=== PATIENT | male | born 1975 | race Two or more races ===

== ENCOUNTER 2017-06-11 09:30 | Emergency (ER) | payer OTHER ==
[2017-06-11 09:39] VITALS: TEMP 98.6; BMI 33.1
[2017-06-11] MEDS ORDERED: ONDANSETRON 4 MG/2 ML VIAL IVPUSH ONE (10:21)
[2017-06-11] MEDS ORDERED: SODIUM CHLORIDE 1,000 ML IV STA (10:21)
[2017-06-11] MEDS ORDERED: KETOROLAC TROMETHAMINE 30 MG/1 ML VIAL IVPUSH ONE (10:21)
[2017-06-11] MEDS ORDERED: ONDANSETRON 4 MG/2 ML VIAL ONE (10:28)
[2017-06-11] MEDS ORDERED: KETOROLAC TROMETHAMINE 30 MG/1 ML VIAL ONE (10:28)
--- NOTE | 2017-06-11 10:28 | PDOC ---
History of Present Illness - General Chief Complaint: Pain, Acute Stated Complaint: NAUSEA/VOMITING, PAIN Time Seen by Provider: 06/11/17 10:01 History Source: Patient Exam Limitations: No Limitations - History of Present Illness Travel History: No Initial Comments: 06/11/17 10:38 42-year-old male presents to the emergency room with complaints of sudden onset of nausea and vomiting associated right upper quadrant pain which he describes sharp and constant worsening in severity since last night. Patient denies history of renal colic, cholecystitis, pancreatitis, recent travel, recent illness, fever, chills abdominal distention or change in bowel pattern. Timing/Duration: reports: constant, getting worse Quality: reports: moderate, sharpness Pain Radiation: reports: no radiation Aggravating Factors: improves with: None Alleviating Factors: improves with: None Past History - Travel Traveled outside of the country in the last 30 days: No - Past Medical History Allergies/Adverse Reactions: Allergies Allergy/AdvReac Type Severity Reaction Status Date / Time No Known Allergies Allergy Verified 06/11/17 09:36 Home Medications: Ambulatory Orders NK [No Known Home Medication] 06/11/17 COPD: No Other medical history: denies. - Suicide/Smoking/Psychosocial Hx Smoking History: Never smoked Patient Lives Alone: No Lives with/in: spouse/SO Review of Systems - Review of Systems Able to Perform ROS?: Yes Constitutional: No: Symptoms Reported HEENTM: No: Symptoms Reported Respiratory: No: Symptoms reported Cardiac (ROS): No: Symptoms Reported ABD/GI: Yes: Nausea, Vomiting, Abdominal cramping : No: Symptoms Reported Musculoskeletal: No: Symptoms Reported Integumentary: No: Symptoms Reported Neurological: No: Symptoms reported *Physical Exam - Vital Signs Last Vital Signs Temp Pulse Resp BP Pulse Ox 98.6 F 83 19 130/84 98 06/11/17 09:36 06/11/17 09:36 06/11/17 09:36 06/11/17 09:36 06/11/17 09:36 - Physical Exam General Appearance: Yes: Nourished, Appropriately Dressed. No: Apparent Distress HEENT: positive: EOMI, DAMEON. negative: Pale Conjunctivae Neck: positive: Supple Respiratory/Chest: positive: Lungs Clear, Normal Breath Sounds. negative: Respiratory Distress, Accessory Muscle Use Cardiovascular: positive: Regular Rhythm, Regular Rate. negative: Murmur Gastrointestinal/Abdominal: positive: Soft, Tenderness (right upper quadrant. Positive Solis's sign.) Musculoskeletal: positive: CVA Tenderness (R) Extremity: positive: Normal Capillary Refill. negative: Pedal Edema Integumentary: positive: Normal Color, Warm, Moist Neurologic: positive: Motor Strength 5/5 (ambulatory) ED Treatment Course - LABORATORY CBC & Chemistry Diagram: 06/11/17 10:31 06/11/17 10:31 Medical Decision Making - Medical Decision Making 06/11/17 10:42 Patient here with sudden onset of nausea vomiting and upper abdominal pain. Patient also mentions mild dysuria this morning. They show exhibits CVA and right upper quadrant tenderness concerning for cholecystitis versus renal colic. Patient ordered for CBC, comp, lipase, urine and urine culture, Toradol and Zofran IV fluids. 06/11/17 12:39 Laboratory Tests 06/11/17 06/11/17 06/11/17 10:31 10:31 10:31 WBC 12.5 H Hgb 16.1 Hct 49.0 Plt Count 327 Neutrophils % 70.8 Sodium 135 L Potassium 4.5 Chloride 102 Carbon Dioxide 25 Anion Gap 8 Calcium 9.7 Total Bilirubin 0.6 AST 32 ALT 47 Albumin 4.4 Lipase 120 Urine Ketones Negative Urine Nitrite Negative Urine Urobilinogen Negative 06/11/17 13:09 Ultrasound reveals no evidence of cholelithiasis, gallbladder wall thickening or pericholecystic fluid. There is a 0.6 x 0.4 cm echogenic lesion along the nondependent gallbladder wall most likely a polyp. There is no evidence of intrahepatic biliary ductal dilatation. Hepatic ketosis with geographic area of sparing in the gallbladder fossa as described above. Patient requesting to eat and states feels much better. Patient will be given crackers and juice. If can tolerate will discharge home with Zofran with a suspicion for gastroenteritis. 06/11/17 13:41 Patient tolerated crackers and juice. Patient be discharged home and Zofran with recommendations to follow bland diet. *DC/Admit/Observation/Transfer Diagnosis at time of Disposition: Nausea & vomiting - Discharge Dispostion Disposition: HOME Condition at time of disposition: Improved - Referrals - Patient Instructions Printed Discharge Instructions: [place] Diet, DI for Viral Gastroenteritis -- Adult Additional Instructions: Please continue a bland diet and use Zofran as needed for nausea. If symptoms worsen including fever, inability to tolerate by mouth or severe abdominal pain please return to the ED. Otherwise follow up with your primary care physician and bring copy of ultrasound report with you. - Post Discharge Activity
[2017-06-11 10:45] LABS: BASO % 0.3 % (0-2.0); EOS % 0.4 % (0-4.5); MCH 29.3 pg (25.7-33.7); MCHC 32.8 g/dl (32.0-35.9); MEAN CELL VOLUME 89.2 fl (80-96); MEAN PLT VOLUME 8.1 fl (7.5-11.1); NEUT % 70.8 % (42.8-82.8); PLATELET COUNT 327 K/MM3 (134-434); RDW 14.3 % (11.9-15.9); WHITE BLOOD COUNT 12.5 K/mm3 (4.0-10.0)
[2017-06-11 10:50] LABS: URINE APPEARANCE CLEAR; URINE BILIRUBIN NEGATIVE (NEGATIVE); URINE BLOOD NEGATIVE (NEGATIVE); URINE COLOR YELLOW; URINE GLUCOSE (UA) NEGATIVE (NEGATIVE); URINE KETONE NEGATIVE (NEGATIVE); URINE LEUK ESTERASE NEGATIVE (NEGATIVE); URINE NITRITE NEGATIVE (NEGATIVE); URINE PROTEIN NEGATIVE (NEGATIVE); URINE UROBILINOGEN NEGATIVE mg/dL (0.2-1.0)
[2017-06-11 11:09] LABS: ALBUMIN 4.4 g/dl (3.4-5.0); ANION GAP 8 (8-16); CALCIUM 9.7 mg/dL (8.5-10.1); CO2 25 mmol/L (21-32); GLUCOSE,RANDOM 115 mg/dL (74-106); SGPT/ALT 47 U/L (12-78)
[2017-06-11 11:11] LABS: ALK PHOS 93 U/L (45-117); BILIRUBIN,TOTAL 0.6 mg/dL (0.2-1.0); TOT PROT 8.9 g/dl (6.4-8.2)
[2017-06-11 12:13] LABS: SGOT/AST 32 U/L (15-37)
[2017-06-11 14:44] VITALS: BP 138/89; PULSE 62
[2017-06-11 15:01] LABS: URINE LEUK ESTERASE Negative (NEGATIVE)
== END 2017-06-11 14:17 | disposition home or self-care (01) ==
LOC: JER 09:30
PROC: 3E0333Z Introduction of Anti-inflammatory into Peripheral Vein, Percutaneous Approach (ICD-10-PCS; principal; 2017-06-11)
PROC: 3E033GC Introduction of Other Therapeutic Substance into Peripheral Vein, Percutaneous Approach (ICD-10-PCS; 2017-06-11)
PROC: 3E0337Z Introduction of Electrolytic and Water Balance Substance into Peripheral Vein, Percutaneous Approach (ICD-10-PCS; 2017-06-11)
DX: R11.2 Nausea with vomiting, unspecified (principal)
CPT/HCPCS: 36415; 76705-TC; 80053; 81003; 83690; 85025; 87086; 96361; 96374; 96375; 99283-25

== ENCOUNTER 2020-03-14 11:26 | Emergency (ER) | payer OTHER ==
--- NOTE | 2020-03-14 11:56 | PDOC ---
Rapid Medical Evaluation Medical Evaluation: Allergies Allergy/AdvReac Type Severity Reaction Status Date / Time No Known Allergies Allergy Verified 06/11/17 09:36 03/14/20 11:51 Pt presents for a rash to his arm starting two weeks ago after having a tattoo. He states that he now has boils and they are painful and itchy. He also notes he has started to get the rash on his abdomen. Denies taking any medication. Exam: multiple pustules to the R arm with abscess to the R forearm Orders: Defer to provider Pt to proceed to the ER for further evaluation Discharge Disposition - Diagnosis Abscess - Referrals - Patient Instructions - Post Discharge Activity
[2020-03-14] MEDS ORDERED: DIPHTH,PERTUSS(ACELL),TET 0.5 ML DISP.SYRIN IM ONE ×2 (11:57→12:23)
[2020-03-14 11:58] VITALS: BP 135/91; PULSE 75; TEMP 98.6; BMI 31.3
--- NOTE | 2020-03-14 12:38 | PDOC ---
History of Present Illness - General Chief Complaint: Abscess Boil Stated Complaint: RASH Time Seen by Provider: 03/14/20 12:02 History Source: Patient Exam Limitations: No Limitations - History of Present Illness Initial Comments: 03/14/20 12:40 Patient is a 44-year-old male who presents to the ED with complaint of a rash to the right upper extremity, right flank and right nare that has gotten worse over the last 1 week. He states he got a tattoo 2 weeks ago which became slightly infected and then the rash began. He denies any fevers or chills. He has noticed some pus coming from the wounds and has been squeezing them. He denies any fevers or chills. The patient denies any past medical history or allergies to medications. He has not been taking anything for his symptoms. Past History - Medical History Allergies/Adverse Reactions: Allergies Allergy/AdvReac Type Severity Reaction Status Date / Time No Known Allergies Allergy Verified 03/14/20 11:51 Home Medications: Ambulatory Orders Ondansetron HCl [Zofran] 4 mg PO TID PRN #12 tablet 06/11/17 Mupirocin Ointment [Bactroban] 1 applic TP BID 7 Days #1 tube 03/14/20 Sulfamethoxazole/Trimethoprim [Bactrim Ds -] 1 tab PO BID #20 tablet 03/14/20 COPD: No - Psycho-Social/Smoking History Smoking History: Never smoked - Substance Abuse Hx (Audit-C & DAST Scrn) How often the patient has a drink containing alcohol: Monthly or less Number of drinks the patient has on a typical day: 1 or 2 How often the patient has six or more drinks on one occasion: Never Score: In Men: 4 or > Positive; In Women: 3 or > Positive: 1 Screen Result (Pos requires Nsg. Audit-10AR): Negative In the last yr the pt used illegal drug/Rx for NonMed reason: No Score: Yes response is considered Positive: 0 Screen Result (Positive result requires Nsg. DAST-10): Negative Review of Systems - Review of Systems Comments:: 03/14/20 12:41 - Review of Systems Able to Perform ROS?: Yes Constitutional: No: Fever, Chills, Loss of Appetite, Night Sweats, Weakness HEENTM: No: Eye Pain, Vision changes, Ear Pain, Throat Pain, Throat Swelling, Mouth Pain, Difficulty Swallowing Respiratory: No: Cough, Shortness of Breath, Wheezing, Sputum Production Cardiac (ROS): No: Chest Pain, Chest Tightness, Palpitations, Irregular Heart Beat, Edema ABD/GI: No: Nausea, Vomiting, Abdominal Pain, Diarrhea : No Dysuria, No Hematuria, No Frequency, No Urgency Musculoskeletal: No: Muscle Pain, Back Pain, Joint Pain, Muscle Weakness, Neck Pain Integumentary: No: Lesions; positive: Rash to the right upper extremity, right flank and right knee Neurological: No: Headache, Numbness, Tingling, Weakness, Speech Difficulties *Physical Exam - Vital Signs Last Vital Signs Temp Pulse Resp BP Pulse Ox 98.6 F 75 18 135/91 100 03/14/20 11:51 03/14/20 11:51 03/14/20 11:51 03/14/20 11:51 03/14/20 11:51 - Physical Exam 03/14/20 12:41 - Physical Exam General Appearance: Nourished, Appropriately Dressed, No Distress HEENT: EOMI, Normal Voice, Hearing Grossly Normal Neck: Supple, No Lymphadenopathy (R), No Lymphadenopathy (L), No Rigidity, No Decreased range of motion Respiratory/Chest: Lungs Clear, Normal Breath Sounds. No Respiratory Distress, No Accessory Muscle Use Cardiovascular: Regular Rhythm, Regular Rate, S1, S2 Musculoskeletal: Normal Inspection. No Decreased Range of Motion Extremity: Normal Capillary Refill, Normal Inspection Integumentary: Normal Color, Dry. Multiple pustules appreciated to the right upper extremity with lesions open and no evidence of abscess formation. There is some surrounding erythema appreciated on a larger lesion on the right forea rm. Moderate induration. Similar pustules appreciated to the right flank and one just adjacent to the umbilicus. There is also a similar lesion in the right nare. No fluctuance to any of the lesions requiring I&D. Neurologic: laboratory scientist II-XII NML intact, Fully Oriented, Alert, Normal Mood/Affect, Normal Response ED Treatment Course - Medications Given in the ED: ED Medications Discontinued Medications Generic Name Dose Route Start Last Admin Trade Name Freq PRN Reason Stop Dose Admin Diphtheria/Tetanus/Acell Pertussis 0.5 ml 03/14/20 11:57 03/14/20 12:27 Boostrix - IM 03/14/20 11:58 0.5 ml .ONCE ONE Administration Medical Decision Making - Medical Decision Making 03/14/20 12:33 Assessment: Patient is a 44-year-old male with multiple pustules to his right upper extremity, right flank and right nare after getting a tattoo 1 week ago and the tattoo becoming infected. Plan: The patient is likely inoculated with MRSA and that is why he is having multiple pustules. There is no sign of abscess that is requiring I&D. We will place the patient on Bactrim DS and Bactroban. He should follow-up with his primary doctor within 1 to 2 days for repeat evaluation. He understands and agrees with this treatment plan and he is stable for discharge. Discharge - Discharge Information Problems reviewed: Yes Clinical Impression/Diagnosis: Abscess, Skin infection, Tattoo reaction Condition: Stable Disposition: HOME - Additional Discharge Information Prescriptions: Sulfamethoxazole/Trimethoprim [Bactrim Ds -] 1 tab PO BID #20 tablet Mupirocin Ointment [Bactroban] 1 applic TP BID 7 Days #1 tube - Follow up/Referral Referrals: [facility] [Provider Group] - Patient Discharge Instructions Patient Printed Discharge Instructions: DI for Methicillin-Resistant Staph I nfection (MRSA), DI for Skin Abscess Additional Instructions: You likely have MRSA. Be sure to use the antibiotic pills as prescribed and complete the entire course even if you are feeling better. Use the ointment as prescribed on all the lesions twice daily for 7 days. Be sure to follow-up with your primary care doctor within 1 to 2 days for repeat evaluation. If you do not have a primary care doctor we have referred you to 1. Es probable que tenga MRSA. Asegrese de usar las pldoras antibiticas segn lo prescrito y complete todo el ciclo incluso si se siente mejor. Use la pomada segn lo prescrito en todas las lesiones dos veces al da chacorta 7 ventura. Asegrese de hacer un seguimiento con jaeger mdico de atencin primaria dentro de 1 a 2 ventura para repetir la evaluacin. Si no tiene un mdico de atencin primaria, lo hemos derivado a 1. - Post Discharge Activity Work/Back to School Note: Back to Work
[2020-03-14] MEDS ORDERED: SULFAMETHOXAZOLE/TRIMETHOPRIM 800MG/160MG D.S. TABLET PO ONE (12:40)
[2020-03-14] MEDS ORDERED: SULFAMETHOXAZOLE/TRIMETHOPRIM 800MG/160MG D.S. TABLET ONE (12:42)
== END 2020-03-14 13:12 | disposition home or self-care (01) ==
LOC: JERFT 11:26
PROC: 3E0234Z Introduction of Serum, Toxoid and Vaccine into Muscle, Percutaneous Approach (ICD-10-PCS; principal; 2020-03-14)
DX: L02.413 Cutaneous abscess of right upper limb (principal)
CPT/HCPCS: 90715; 99284-25

== ENCOUNTER 2020-03-16 11:34 | Emergency (ER) | payer OTHER ==
[2020-03-16 11:42] VITALS: BP 119/79; PULSE 71; TEMP 98.3; BMI 32.3
--- NOTE | 2020-03-16 12:37 | PDOC ---
History of Present Illness - General Chief Complaint: Abscess Boil Stated Complaint: BOILS Time Seen by Provider: 03/16/20 11:49 History Source: Patient Exam Limitations: No Limitations Past History - Travel History Traveled outside of the country in the last 30 days: No Close contact w/someone who was outside of country & ill: No - Medical History Allergies/Adverse Reactions: Allergies Allergy/AdvReac Type Severity Reaction Status Date / Time No Known Allergies Allergy Verified 03/16/20 12:17 Home Medications: Ambulatory Orders Ondansetron HCl [Zofran] 4 mg PO TID PRN #12 tablet 06/11/17 Mupirocin Ointment [Bactroban] 1 applic TP BID 7 Days #1 tube 03/14/20 Sulfamethoxazole/Trimethoprim [Bactrim Ds -] 1 tab PO BID #20 tablet 03/14/20 Chlorhexidine Gluconate [Hibiclens For Decolonization -] 1 applic TP DAILY #1 bottle 03/16/20 Clindamycin [Cleocin -] 300 mg PO TID #21 capsule 03/16/20 Ibuprofen 600 mg PO Q6H #30 tablet 03/16/20 Lactobacillus Acidophilus [Probiotic] 1 each PO DAILY #7 capsule 03/16/20 COPD: No - Immunization History Immunization Up to Date: No - Psycho-Social/Smoking History Smoking History: Never smoked Have you smoked in the past 12 months: No Information on smoking cessation initiated: No - Substance Abuse Hx (Audit-C & DAST Scrn) How often the patient has a drink containing alcohol: Never Score: In Men: 4 or > Positive; In Women: 3 or > Positive: 0 Screen Result (Pos requires Nsg. Audit-10AR): Negative In the last yr the pt used illegal drug/Rx for NonMed reason: No Score: Yes response is considered Positive: 0 Screen Result (Positive result requires Nsg. DAST-10): Negative Review of Systems - Review of Systems Able to Perform ROS?: Yes Comments:: 03/16/20 12:27 CONSTITUTIONAL: Absent: fever, chills, diaphoresis, generalized weakness, malaise, loss of appetite HEENT: Absent: rhinorrhea, nasal congestion, throat pain, throat swelling, difficulty swallowing, mouth swelling, ear pain, eye pain, visual Changes CARDIOVASCULAR: Absent: chest pain, loss of consciousness, palpitations, irregular heart rate, peripheral edema RESPIRATORY: Absent: cough, shortness of breath, dyspnea with exertion, orthopnea, wheezing, stridor, hemoptysis GASTROINTESTINAL: Absent: abdominal pain, abdominal distension, nausea, vomiting, diarrhea, constipation, melena, hematochezia GENITOURINARY: Absent: dysuria, frequency, urgency, hesitancy, hematuria, flank pain, genital pain MUSCULOSKELETAL: Absent: myalgia, arthralgia, joint swelling SKIN: Present: Rash Absent: itching, pallor HEMATOLOGIC/IMMUNOLOGIC: Absent: easy bleeding, easy bruising, lymphadenopathy, frequent infections ENDOCRINE: Absent: unexplained weight gain, unexplained weight loss, heat intolerance, cold intolerance NEUROLOGIC: Absent: headache, focal weakness or paresthesias, dizziness, unsteady gait, seizure, mental status changes, bladder or bowel incontinence PSYCHIATRIC: Absent: anxiety, depression, suicidal or homicidal ideation, hallucinations. Is the patient limited Yi proficient: No *Physical Exam - Vital Signs Last Vital Signs Temp Pulse Resp BP Pulse Ox 98.3 F 71 18 119/79 99 03/16/20 11:39 03/16/20 11:39 03/16/20 11:39 03/16/20 11:39 03/16/20 11:39 - Physical Exam 03/16/20 19:59 GENERAL: The patient is awake, alert, and fully oriented, in no acute distress. HEAD: Normal with no signs of trauma. EYES: Pupils equal, round and reactive to light, extraocular movements intact, sclera anicteric, conjunctiva clear. EXTREMITIES: Normal range of motion, no edema. NEUROLOGICAL: Normal speech, normal gait. PSYCH: Normal mood, normal affect. SKIN: Multiple boils/pustules to the right arm measuring as much is 0.5 cm in length. Mild fluctuance felt to the right elbow with active drainage. Pustules also on the abdomen and under the right nare. Warm, Dry, normal turgor, no rashes or lesions noted. Medical Decision Making - Medical Decision Making 03/16/20 20:11 The patient is a 44-year-old male who presents to the ER for reevaluation of his rash from 2 days ago. He states that he has been taking the antibiotics and mupirocin as directed however he states that the rash is getting worse and more painful. He does not endorse any new lesions, however he feels that the lesions he has are now more red and tender. Denies fevers, chills, nausea and vomiting. A/P: Pustules, likely MRSA On exam patient has multiple pustules with erythema and multiple excoriations consistent with MRSA. We will switch patient's antibiotics to clindamycin. Wound culture sent from the open area. Areas were marked to determine worsening cellulitis. Instructed patient to return in 2 days for wound check Strict return precautions given. I discussed the physical exam findings, ancillary test results and final diagnoses with the patient. I answered all of the patient's questions. The patient was satisfied with the care received and felt comfortable with the discharge plan and treatment plan. The Patient agrees to follow up with the primary care physician/specialist within 24-72 hours. Return precautions were given. Discharge - Discharge Information Problems reviewed: Yes Clinical Impression/Diagnosis: Skin infection Condition: Stable Disposition: HOME - Admission No - Additional Discharge Information Prescriptions: Clindamycin [Cleocin -] 300 mg PO TID #21 capsule Chlorhexidine Gluconate [Hibiclens For Decolonization -] 1 applic TP DAILY #1 bottle Ibuprofen 600 mg PO Q6H #30 tablet Lactobacillus Acidophilus [Probiotic] 1 each PO DAILY #7 capsule - Follow up/Referral Referrals: Kush Hernandez MD [Primary Care Provider] - Fara Calle MD [Staff Physician] - - Patient Discharge Instructions Patient Printed Discharge Instructions: DI for Cellulitis -- Adult Additional Instructions: You have pustules and cellulitis. This is a skin infection. Stop taking the bactrim at this time Start taking the clindamycin three times a day with food; also take the probiotic as directed You may use warm water soaks to the area. Please do this approximately 4-5 times a day. Please avoid shaving the skin around the area of redness. You may take Tylenol or Motrin as needed for pain. Please return on Saturday for a wound check. Please follow up with your primary care doctor in 1 week. Return to the emergency department sooner if you have worsening redness, fevers, increasing pain, or have any changes in your symptoms. Tiene pstulas y celulitis. sta es dani infeccin de la piel. Enedelia de elenita el bactrim en michael momento Empiece a elenita clindamicina reina veces al da con comida; tambin tome el probitico segn las indicaciones Puede usar remojos de agua tibia en el cristine. Jaylene esto aproximadamente 4-5 veces al da. Evite afeitarse la piel alrededor del cristine enrojecida. Puede elenita Tylenol o Motrin segn sea necesario para el dolor. Regrese el sbado para un control de heridas. Jaylene un seguimiento con jaeger mdico de atencin primaria en 1 semana. Regrese a la diallo de emergencias antes si tiene un enrojecimiento que empeora, fiebre, aumento del dolor o cualquier cambio en yulia sntomas. Print Language: SAMMARINESE - Post Discharge Activity Work/Back to School Note: Back to Work
== END 2020-03-16 12:52 | disposition home or self-care (01) ==
LOC: JERFT 11:34
DX: L08.9 Local infection of the skin and subcutaneous tissue, unspecified (principal)
CPT/HCPCS: 87070; 87186; 87205; 99283-25

== ENCOUNTER 2020-03-19 11:50 | Inpatient (IN) | payer OTHER ==
[2020-03-19 12:05] VITALS: BMI 32.5
--- OUTSIDE RECORDS SUMMARY | 2020-03-19 12:06 | XMS ---
:1975 Author Organization [facility] Support Name Relationship Address Phone UE, UNEMPLOYED Unavailable Unavailable Unavailable UE Unavailable Unavailable Unavailable DAWSON, [employer] [address] [place] [address] Re-disclosure Warning The records that you are about to access may contain information from federally- assisted alcohol or drug abuse programs. If such information is present, then the following federally mandated warning applies: This information has been disclosed to you from records protected by federal confidentiality rules (42 CFR part 2). The federal rules prohibit you from making any further disclosure of this information unless further disclosure is expressly permitted by the written consent of the person to whom it pertains or as otherwise permitted by 42 CFR part 2. A general authorization for the release of medical or other information is NOT sufficient for this purpose. The Federal rules restrict any use of the information to criminally investigate or prosecute any alcohol or drug abuse patient.The records that you are about to access may contain highly sensitive health information, the redisclosure of which is protected by Article 27-F of the [facility] Public Health law. If you continue you may haveaccess to information: Regarding HIV / AIDS; Provided by facilities licensed or operated by the [facility] Office of Mental Health; or Provided by the [facility] Office for People With Developmental Disabilities. If such information is present, then the following [facility] mandated warning applies: This information has been disclosed to you from confidential records which are protected by state law. State law prohibits you from making any further disclosure of this information without the specific written consent of the person to whom it pertains, or as otherwise permitted by law. Any unauthorized further disclosure in violation of state law may result in a fine or long term sentence or both. A general authorization for the release of medical or other information is NOT sufficient authorization for further disclosure. Insurance Providers Payer name Policy type Policy ID Covered Covered libertarian's Policy P elliot / Coverage libertarian ID relationship to [employer] [employer] ormation type buckley ANDERS [id number] [address] [facility] NON CAP
--- NOTE | 2020-03-19 12:25 | PDOC ---
History of Present Illness - General Chief Complaint: Revisit,Wound Recheck Stated Complaint: SKIN PROBLEM Time Seen by Provider: 03/19/20 12:01 History Source: Patient Exam Limitations: No Limitations Past History - Travel History Traveled outside of the country in the last 30 days: No Close contact w/someone who was outside of country & ill: No - Medical History Allergies/Adverse Reactions: Allergies Allergy/AdvReac Type Severity Reaction Status Date / Time No Known Allergies Allergy Verified 03/19/20 11:54 Home Medications: Ambulatory Orders NK [No Known Home Medication] 03/19/20 COPD: No - Immunization History Immunization Up to Date: No - Psycho-Social/Smoking History Smoking History: Never smoked Have you smoked in the past 12 months: No - Substance Abuse Hx (Audit-C & DAST Scrn) How often the patient has a drink containing alcohol: Never Score: In Men: 4 or > Positive; In Women: 3 or > Positive: 0 Screen Result (Pos requires Nsg. Audit-10AR): Negative In the last yr the pt used illegal drug/Rx for NonMed reason: No Score: Yes response is considered Positive: 0 Screen Result (Positive result requires Nsg. DAST-10): Negative Review of Systems - Review of Systems Able to Perform ROS?: Yes Comments:: 03/19/20 14:17 CONSTITUTIONAL: Absent: fever, chills, diaphoresis, generalized weakness, malaise, loss of appetite HEENT: Absent: rhinorrhea, nasal congestion, throat pain, throat swelling, difficulty swallowing, mouth swelling, ear pain, eye pain, visual Changes CARDIOVASCULAR: Absent: chest pain, loss of consciousness, palpitations, irregular heart rate, peripheral edema RESPIRATORY: Absent: cough, shortness of breath, dyspnea with exertion, orthopnea, wheezing, stridor, hemoptysis GASTROINTESTINAL: Absent: abdominal pain, abdominal distension, nausea, vomiting, diarrhea, constipation, melena, hematochezia GENITOURINARY: Absent: dysuria, frequency, urgency, hesitancy, hematuria, flank pain, genital pain MUSCULOSKELETAL: Absent: myalgia, arthralgia, joint swelling SKIN: Present: Skin infection to the right arm, abdomen. Absent: rash, itching, pallor HEMATOLOGIC/IMMUNOLOGIC: Absent: easy bleeding, easy bruising, lymphadenopathy, frequent infections ENDOCRINE: Absent: unexplained weight gain, unexplained weight loss, heat intolerance, cold intolerance NEUROLOGIC: Absent: headache, focal weakness or paresthesias, dizziness, unsteady gait, seizure, mental status changes, bladder or bowel incontinence PSYCHIATRIC: Absent: anxiety, depression, suicidal or homicidal ideation, hallucinations. Is the patient limited Italian proficient: No *Physical Exam - Vital Signs Last Vital Signs Temp Pulse Resp BP Pulse Ox 98.6 F 68 18 134/86 100 03/19/20 11:54 03/19/20 11:54 03/19/20 11:54 03/19/20 11:54 03/19/20 11:54 - Physical Exam 03/19/20 14:19 GENERAL: Well developed, well nourished. Awake and alert. No acute distress. HEENT: Normocephalic, atraumatic. PERRLA, EOMI. No conjunctival pallor. Sclera are non- icteric. Moist mucous membranes. Oropharynx is clear. NECK: Supple. Full ROM. No JVD. Carotid pulses 2+ and symmetric, without bruits. No thyromegaly. No lymphadenopathy. CARDIOVASCULAR: Regular rate and rhythm. No murmurs, rubs, or gallops. Distal pulses are 2+ and symmetric. PULMONARY: No evidence of respiratory distress. Lungs clear to auscultation bilaterally. No wheezing, rales or rhonchi. ABDOMINAL: Soft. Non-tender. Non-distended. No rebound or guarding. No organomegaly. Normoactive bowel sounds. MUSCULOSKELETAL Normal range of motion at all joints. No bony deformities or tenderness. No CVA tenderness. EXTREMITIES: No cyanosis. No clubbing. No edema. No calf tenderness. SKIN: Multiple boils/pustules to the right arm measuring as much is 0.5 cm in length. Mild fluctuance felt to the right elbow with active drainage. Pustules also on the abdomen and under the right nare. Warm and dry. Normal capillary refill. No rashes. No jaundice. NEUROLOGICAL: Alert, awake, appropriate. Cranial nerves 2-12 intact. No deficits to light touch and temperature in face, upper extremities and lower extremities. No motor deficits in the in face, upper extremities and lower extremities. Normoreflexic in the upper and lower extremities. Normal speech. Toes are down-going bilaterally. Gait is normal without ataxia. PSYCHIATRIC: Cooperative. Good eye contact. Appropriate mood and affect. ED Treatment Course - LABORATORY CBC & Chemistry Diagram: 03/19/20 12:30 03/19/20 12:30 Medical Decision Making - Medical Decision Making 03/19/20 14:21 The patient is a 44-year-old male no past medical history who presents to the ER today for a wound evaluation of his right arm. 2 weeks ago he had a new tattoo placed to the right arm. He states that the tattoo was itchy so he was scratching it. After scratching it he notes that he had multiple pustules to the right arm. He states that he has been taking his antibiotics as directed however he has no improvement. He was initially placed on Bactrim on the , when he returned the he states that his symptoms had gotten worse and the areas were more painful. When I saw him on the I changed his Bactrim to clindamycin and took a wound culture. Wound culture shows sensitivity to Bactrim, resistance to clindamycin, however given failure to both antibiotics symptoms have not improved. Patient denies fevers, chills, numbness and tin gling weakness effect extremity. A/P: MRSA infection On exam patient has multiple pustules to the right arm worse over the right elbow with active drainage. No fluctuance felt to drain at this time. Overall this is unchanged from previous exam however the pustule over the left elbow has grown in size. Given multiple visits for the same complaint with no improvement with multiple outpatient antibiotics, will admit the patient for IV antibiotics. Given cultures, sensitivity to vancomycin. Blood cultures, basic labs obtained in the ER. 1 g of vancomycin given now Admit to hospitalist. Discharge - Discharge Information Problems reviewed: Yes Clinical Impression/Diagnosis: Skin infection, MRSA cellulitis Condition: Stable - Admission Yes - Follow up/Referral - Patient Discharge Instructions - Post Discharge Activity
[2020-03-19] MEDS ORDERED: VANCOMYCIN 1,000 MG in DEXTROSE 5%-WATER - 250 ML IVPB ONE (12:55)
[2020-03-19] MEDS ORDERED: VANCOMYCIN 1 GRAM (PRE-DOCKED) 1,000 MG/250 ML BAG IVPB ONE (13:07)
[2020-03-19 13:20] LABS: BASO % 0.6 % (0-2.0); EOS % 2.4 % (0-4.5); HEMATOCRIT 43.7 % (35.4-49); HEMOGLOBIN 14.8 GM/dL (11.7-16.9); LYMPH % 47.5 % (8-40); MCH 30.4 pg (25.7-33.7); MCHC 33.8 g/dl (32.0-35.9); MONO % 7.5 % (3.8-10.2); PLATELET COUNT 370 K/MM3 (134-434); RBC 4.86 M/mm3 (4.00-5.60); RDW 14.5 % (11.9-15.9); WHITE BLOOD COUNT 7.1 K/mm3 (4.0-10.0)
[2020-03-19 13:39] LABS: ALBUMIN 4.1 g/dl (3.4-5.0); BILIRUBIN,TOTAL 0.3 mg/dL (0.2-1); BLOOD UREA NITROGEN 15.2 mg/dL (7-18); CALCIUM 9.9 mg/dL (8.5-10.1); CREATININE 0.9 mg/dL (0.55-1.3); TOT PROT 8.6 g/dl (6.4-8.2)
--- OUTSIDE RECORDS SUMMARY | 2020-03-19 15:22 | XMS ---
:1975 Author Organization [facility] Support Name Relationship Address Phone UE, UNEMPLOYED Unavailable Unavailable Unavailable UE Unavailable Unavailable Unavailable DAWSON, [employer] [address] [phone] [place] [address] Re-disclosure Warning The records that you are [...] is protected by Article 27-F of the [facility] Public Health law. If you continue you may haveaccess to information: Regarding HIV / AIDS; Provided by facilities licensed or operated by the [facility] Office of Mental Health; or Provided by the [facility] Office for People With Developmental Disabilities. If such information is present, then the following [facility] mandated warning applies: This information has [...] law may result in a fine or fdc sentence or both. A general authorization for the release of medical or other information is NOT sufficient authorization for further disclosure. Insurance Providers Payer name Policy type Policy ID Covered Covered democrat's Policy P elliot / Coverage democrat ID relationship to [employer] Inf ormation type buckley ANDERS [id number] [address] [facility] NON CAP
--- NOTE | 2020-03-19 16:20 | HP ---
CHIEF COMPLAINT: Rt. arm and abdomen Rash PCP: N/A HISTORY OF PRESENT ILLNESS: 44 YO man without significant medical hx presented to ED complaining from worsening rash in arm and abdomen of 2 weeks duration that did not respond to outpatient Abx, rash started on rt arm, as itching papules that ulcerated with serosanguinous discharge a week after he got his tattoo in same arm, pt went to ED and was given Bactrim, he did not feel improvement and visited ED again and was prescribed clindamycin and culture was taken. sensitivity report later showed resistance to clindamycin and culture grew MRSA. Pt re-visited ED and was admitted for IV antibiotics. He denies fever, chills, headaches, sick contacts. He's sexually active with one partner only. denies joint pain or swelling ER course was notable for: (1) vancomycin (2) (3) Recent Travel: PAST MEDICAL HISTORY: PAST SURGICAL HISTORY: Social History: Smoking: NA Alcohol: socially 2 drinks every 1-2 weeks Drugs: denies Allergies No Known Allergies Allergy (Verified 03/19/20 11:54) HOME MEDICATIONS: Home Medications Medication Instructions Recorded NK [No Known Home Medication] 03/19/20 REVIEW OF SYSTEMS CONSTITUTIONAL: Absent: fever, chills, diaphoresis, generalized weakness, malaise, loss of appetite, weight change HEENT: Absent: rhinorrhea, nasal congestion, throat pain, throat swelling, difficulty swallowing, mouth swelling, ear pain, eye pain, visual changes CARDIOVASCULAR: Absent: chest pain, syncope, palpitations, irregular heart rate, lightheadedness, peripheral edema RESPIRATORY: Absent: cough, shortness of breath, dyspnea with exertion, orthopnea, wheezing, stridor, hemoptysis GASTROINTESTINAL: Absent: abdominal pain, abdominal distension, nausea, vomiting, diarrhea, constipation, melena, hematochezia GENITOURINARY: Absent: dysuria, frequency, urgency, hesitancy, hematuria, flank pain, genital pain MUSCULOSKELETAL: Absent: myalgia, arthralgia, joint swelling, back pain, neck pain SKIN: see HPI HEMATOLOGIC/IMMUNOLOGIC: Absent: easy bleeding, easy bruising, lymphadenopathy, frequent infections ENDOCRINE: Absent: unexplained weight gain, unexplained weight loss, heat intolerance, cold intolerance NEUROLOGIC: Absent: headache, focal weakness or paresthesias, dizziness, unsteady gait, seizure, mental status changes, bladder or bowel incontinence PSYCHIATRIC: Absent: anxiety, depression, suicidal or homicidal ideation, hallucinations. PHYSICAL EXAMINATION Vital Signs - 24 hr 03/19/20 11:54 Temperature 98.6 F Pulse Rate 68 Respiratory 18 Rate Blood Pressure 134/86 O2 Sat by Pulse 100 Oximetry (%) GENERAL: Awake, alert, and fully oriented, in no acute distress. HEAD: Normal with no signs of trauma. EYES: Pupils equal, round and reactive to light, extraocular movements intact, sclera anicteric, conjunctiva clear. No lid lag. EARS, NOSE, THROAT: Ears normal, nares patent, oropharynx clear without exudates. Moist mucous membranes. NECK: Normal range of motion, supple without lymphadenopathy, JVD, or masses. LUNGS: Breath sounds equal, clear to auscultation bilaterally. No wheezes, and no crackles. No accessory muscle use. HEART: Regular rate and rhythm, normal S1 and S2 without murmur, rub or gallop. ABDOMEN: Soft, nontender, not distended, normoactive bowel sounds, no guarding, no rebound, no masses. No hepatomegaly or splenomegaly. MUSCULOSKELETAL: Normal range of motion at all joints. No bony deformities or tenderness. No CVA tenderness. UPPER EXTREMITIES: 2+ pulses, warm, well-perfused. No cyanosis. No clubbing. No peripheral edema. LOWER EXTREMITIES: 2+ pulses, warm, well-perfused. No calf tenderness. No pe ripheral edema. NEUROLOGICAL: Cranial nerves II-XII intact. Normal speech. Normal gait. PSYCHIATRIC: Cooperative. Good eye contact. Appropriate mood and affect. SKIN: Warm, dry, normal turgor, papulonodular rash on rt arm and mid abdomen and lower chest with one rt nostril nodule, ulcerative lesions in rt arm no discharge expressed Laboratory Results - last 24 hr 03/19/20 03/19/20 12:30 12:30 WBC 7.1 RBC 4.86 Hgb 14.8 Hct 43.7 MCV 90.0 MCH 30.4 MCHC 33.8 RDW 14.5 Plt Count 370 MPV 9.0 D Absolute Neuts (auto) 3.0 Neutrophils % 42.0 L D Lymphocytes % 47.5 H D Monocytes % 7.5 Eosinophils % 2.4 D Basophils % 0.6 Nucleated RBC % 0 Sodium 138 Potassium 5.0 Chloride 106 Carbon Dioxide 29 Anion Gap 3 L BUN 15.2 Creatinine 0.9 Est GFR (CKD-EPI)AfAm 120.81 Est GFR (CKD-EPI)NonAf 104.24 Random Glucose 86 Calcium 9.9 Total Bilirubin 0.3 AST 50 H ALT 48 Alkaline Phosphatase 88 Total Protein 8.6 H Albumin 4.1 ASSESSMENT/PLAN: 44 YO man without significant medical hx presented to ED complaining from worsening rash in arm and abdomen of 2 weeks duration that did not respond to outpatient Abx # Maculopapular/ ulcerative Rash infectious vs drug reaction? wound culture grew MRSA started on IV vancomycin ID consult requested check ESR/CRP contact isolation DVT prophylaxis Family Medical History Family History: Denies Visit type - Emergency Visit Emergency Visit: Yes ED Registration Date: 03/19/20 Care time: The patient presented to the Emergency Department on the above date and was hospitalized for further evaluation of their emergent condition. - New Patient This patient is new to me today: Yes Date on this admission: 03/19/20 - Critical Care Critical Care patient: No
--- NOTE | 2020-03-19 20:38 | CON.ID ---
Consult - History of Present Illness History of Present Illness: 44 y.o. male with no PMH presents with multiple erythematous lesions that began developing mainly in his RUE one week after getting a new tattoo 2 weeks ago and his Rt nares. Pt states he took Bactrim but returned to the ER for worsening of lesions on 03/16/20. Culture of lesions were obtained and pt was discharged home on Clindamycin. Wound cultures obtained showed growth of MRSA resistant to Clindamyccin. Now he states that there has been improvement/healing of some of the lesions but he has one below his Rt elbow that is larger and been more pain ful. He is afebrile, without leukocytosis. Denies recent chills or has no other specific complaints. 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: No: Alzheimer's, CVA, Dementia, Migraine, Multiple Sclerosis, Peripheral Neuropathy, Parkinson's, Seizure, Syncope, TIA, Vertigo, Other Cardio/Vascular: No: AFIB, Aneurysm, Aortic Insufficiency, Aortic Stenosis, CAD, CHF, Deep Vein Thrombosis, HTN, Hyperlipdemia, NE, Mitral Insufficiency, Mitral Stenosis, Murmur, Pulmonary Hypertension, Other Pulmonary: No: Asthma, Bronchitis, Cancer, COPD, O2 Dependent, Pneumonia, Previously Intubated, Pulmonary Embolus, Pulmonary Fibrosis, Sleep Apnea, Other Gastrointestinal: No: Ascites, Cancer, Constipation, Crohn's Disease, Diverticulitis, Diverticulosis, Esophageal Varices, Gastritis, GERD, GI Bleed, Hemorrhoids, Hiatal Hernia, Inflamatory Bowel Disease, Irritable Bowel Disease, Pancreatitis, Peptic Ulcer Disease, Ulcerative Colitis, Other Hepatobiliary: No: Cirrhosis, Cholelithiasis, Cholecystitis, Chol edocholithiasis, Hepatitis A, Hepatitis B, Hepatitis C, Other Renal/: No: Renal Failure, Renal Inusuff, BPH, Cancer, Hematuria, Hemodialysis, Neurogenic Bladder, Renal Calculi, UTI, Other Heme/Onc: No: Anemia, B12 Deficiency, Bleeding Disorder, Cancer, Current Chemotherapy, Current Radiation Therapy, Hemochromatosis, Hypercoaguable State, Myeloproliferative Synd, Sickle Cell Disease, Sickle Cell Trait, Thrombocytopenia, Other Infectious Disease: No: AIDS, C-Diff, Herpes Zoster, HIV, MRSA, STD's, Tuberculosis, VREF, Other Psych: No: Addictions, Anxiety, Bipolar, Depression, Panic, Psychosis, Schizophrenia, Other Musculoskeletal: No: Bursitis, Chronic low back pain, Hemiparesis, Hemiplegia, Osteoarthritis, Paraplegia, Other Rheumatology: No: Fibromyalgia, Gout, Lupus, Rheumatoid Arthritis, Sarcoidosis, Vasculitis, Other ENT: No: Allergic Rhinitis, Sinusitis, Other Endocrine: No: Lex's Disease, Damián's Disease, Diabetes Insipidus, Diabetes Mellitus, Hyperparathyroidism, Hyperthyroidism, Hypothyroidism, Osteopenia, SIADH, Other Dermatology: No: Basal Cell, Cellulitis, Eczema, Melanoma, Psoriasis, Squamous Cell, Other - Past Surgical History Past Surgical History: No: None, AAA Repair, AICD, Amputation, Appendectomy, Arthrosocopy, AV Fistula/Graft, Bariatric Surgery, Breast Biopsy, Bypass, CABG, Carotid Endarterectomy, Cataract Removal, Cholecystectomy, Colectomy, Colonoscopy, Colostomy, Craniotomy, , Cystectomy, Hernia Repair, Hysterectomy, Ileal Conduit, Ileosotomy, Joint Replacement, Kidney Transplant, Laminectomy, Liver Transplant, Mastectomy, Nephrectomy, Oopherectomy, Orchiectomy, Permanent Pacemaker, Prostatectomy, Splenectomy, Stent, Thoracotomy, TURP, Tonsillectomy, Tubal Ligation, Upper Endoscopy, Valve Replacement, Vasectomy, Vein Stripping/Ligation - Smoking History Smoking history: Never smoked Have you smoked in the past 12 months: No Home Medications - Allergies Allergies/Adverse Reactions: Allergies Allergy/AdvReac Type Severity Reaction Status Date / Time No Known Allergies Allergy Verified 03/19/20 11:54 - Home Medications Home Medications: Ambulatory Orders NK [No Known Home Medication] 03/19/20 Review of Systems - Review of Systems Constitutional: reports: No Symptoms Eyes: reports: No Symptoms HENT: reports: No Symptoms Neck: reports: No Symptoms Cardiovascular: reports: No Symptoms Respiratory: reports: No Symptoms Gastrointestinal: reports: No Symptoms Genitourinary: reports: No Symptoms Integumentary: reports: Erythema, Rash (boils) Neurological: reports: No Symptoms Endocrine: reports: No Symptoms Hematology/Lymphatic: reports: No Symptoms Psychiatric: reports: No Symptoms Physical Exam Vital Signs: Vital Signs Temperature 97.9 F 03/19/20 18:35 Pulse Rate 79 03/19/20 18:35 Respiratory Rate 16 03/19/20 18:35 Blood Pressure 139/95 03/19/20 18:35 O2 Sat by Pulse Oximetry (%) 99 03/19/20 18:35 Constitutional: Yes: No Distress, Calm Eyes: Yes: Conjunctiva Clear, EOM Intact HENT: Yes: Atraumatic, Normocephalic Neck: Yes: Supple Cardiovascular: Yes: Regular Rate and Rhythm Respiratory: Yes: CTA Bilaterally Gastrointestinal: Yes: Normal Bowel Sounds, Soft Renal/: Yes: WNL Edema: No Integumentary: Yes: Tattoos Wound/Incision: Yes: Other (boil with purulent drainage below Rt olecranon, no edema/erythema/tenderness/warmth of elbow, ROM intact multiple resolving pustules - dry) Neurological: Yes: Alert, Oriented Psychiatric: Yes: Alert Labs: CBC, BMP 03/19/20 12:30 03/19/20 12:30 Laboratory Last Values WBC 7.1 K/mm3 (4.0-10.0) 03/19/20 12:30 RBC 4.86 M/mm3 (4.00-5.60) 03/19/20 12:30 Hgb 14.8 GM/dL (11.7-16.9) 03/19/20 12:30 Hct 43.7 % (35.4-49) 03/19/20 12:30 MCV 90.0 fl (80-96) 03/19/20 12:30 MCH 30.4 pg (25.7-33.7) 03/19/20 12:30 MCHC 33.8 g/dl (32.0-35.9) 03/19/20 12:30 RDW 14.5 % (11.9-15.9) 03/19/20 12:30 Plt Count 370 K/MM3 (134-434) 03/19/20 12:30 MPV 9.0 fl (7.5-11.1) D 03/19/20 12:30 Absolute Neuts (auto) 3.0 K/mm3 (1.5-8.0) 03/19/20 12:30 Neutrophils % 42.0 % (42.8-82.8) L D 03/19/20 12:30 Lymphocytes % 47.5 % (8-40) H D 03/19/20 12:30 Monocytes % 7.5 % (3.8-10.2) 03/19/20 12:30 Eosinophils % 2.4 % (0-4.5) D 03/19/20 12:30 Basophils % 0.6 % (0-2.0) 03/19/20 12:30 Nucleated RBC % 0 % (0-0) 03/19/20 12:30 ESR 27 mm/hr (0-10) H 03/19/20 16:24 Sodium 138 mmol/L (136-145) 03/19/20 12:30 Potassium 5.0 mmol/L (3.5-5.1) 03/19/20 12:30 Chloride 106 mmol/L (98-107) 03/19/20 12:30 Carbon Dioxide 29 mmol/L (21-32) 03/19/20 12:30 Anion Gap 3 MMOL/L (8-16) L 03/19/20 12:30 BUN 15.2 mg/dL (7-18) 03/19/20 12:30 Creatinine 0.9 mg/dL (0.55-1.3) 03/19/20 12:30 Est GFR (CKD-EPI)AfAm 120.81 03/19/20 12:30 Est GFR (CKD-EPI)NonAf 104.24 03/19/20 12:30 Random Glucose 86 mg/dL (74-106) 03/19/20 12:30 Calcium 9.9 mg/dL (8.5-10.1) 03/19/20 12:30 Total Bilirubin 0.3 mg/dL (0.2-1) 03/19/20 12:30 AST 50 U/L (15-37) H 03/19/20 12:30 ALT 48 U/L (13-61) 03/19/20 12:30 Alkaline Phosphatase 88 U/L (45-117) 03/19/20 12:30 C-Reactive Protein 0.6 MG/DL (0.00-0.3) H 03/19/20 16:24 Total Protein 8.6 g/dl (6.4-8.2) H 03/19/20 12:30 Albumin 4.1 g/dl (3.4-5.0) 03/19/20 12:30 Imaging - Results X-ray: Pending (Rt elbow) Problem List - Problems (1) MRSA cellulitis Code(s): L03.90 - CELLULITIS, UNSPECIFIED; B95.62 - METHICILLIN RESIS STAPH INFCT CAUSING DISEASES CLASSD [id number] Assessment/Plan RUE boils +MRSA s/p tattoo -- continue Vancomycin -- based on physical exam do not suspect involvement of Rt elbow joint. Follow up Xray. -- if improves plan to switch to po antibiotics -- mupirocin ointment to nares BID x 5 days -- contact precautions Will follow up Thank you
[2020-03-19] MEDS: HEPARIN NA (PORCINE) 5,000 UNITS/ML 1ML VIAL SQ SCH (21:45)
[2020-03-20 07:56] LABS: HEMATOCRIT 42.8 % (35.4-49); HEMOGLOBIN 14.2 GM/dL (11.7-16.9); MCH 29.6 pg (25.7-33.7); MCHC 33.3 g/dl (32.0-35.9); MEAN PLT VOLUME 8.6 fl (7.5-11.1); PLATELET COUNT 351 K/MM3 (134-434); RBC 4.81 M/mm3 (4.00-5.60); RDW 14.3 % (11.9-15.9)
[2020-03-20 07:57] LABS: INR 1.14 (0.83-1.09); PROTHROMBIN TIME (PATIENT) 13.5 SEC (9.7-13.0)
[2020-03-20 08:25] LABS: BLOOD UREA NITROGEN 13.2 mg/dL (7-18); CALCIUM 9.7 mg/dL (8.5-10.1); MAGNESIUM 2.1 mg/dL (1.8-2.4); POTASSIUM 5.2 mmol/L (3.5-5.1)
[2020-03-20] MEDS ORDERED: PT OWN MED DRAWER 7, Y5N ONE ×3 (09:05→18:29)
[2020-03-20] MEDS: HEPARIN NA (PORCINE) 5,000 UNITS/ML 1ML VIAL SQ SCH ×2 (10:54→22:50)
[2020-03-20 10:56] LABS: PHOSPHOROUS 4.4 mg/dL (2.5-4.9)
[2020-03-20] MEDS: MUPIROCIN 2% TOPICAL OINTMENT FOR DECOLONIZATION NS SCH ×2 (11:30→22:52)
[2020-03-20] MEDS ORDERED: VANCOMYCIN HCL 1,500 MG in DEXTROSE 5%-WATER - 500 ML IVPB SCH (13:00)
--- NOTE | 2020-03-20 15:10 | EKG ---
Test Reason : Blood Pressure : / mmHG Vent. Rate : 066 BPM Atrial Rate : 066 BPM P-R Int : 180 ms QRS Dur : 086 ms QT Int : 352 ms P-R-T Axes : 019 012 -01 degrees QTc Int : 369 ms NORMAL SINUS RHYTHM NORMAL ECG NO PREVIOUS ECGS AVAILABLE Confirmed by MD Bryce, Tyrone ([id number]) on 03/20/2020 3:10:02 PM Referred By: Confirmed By:Tyrone Wu MD
--- NOTE | 2020-03-20 15:39 | PN ---
Progress Note (short form) - Note Progress Note: S: Pt received tattoo with colouring 1 week prior to rash/lesions. Patient first developed nare lesion and progression throughout the week to R AC fossa and then R elbow. His most recent lesion is around the umbilicus. Patient without any known allergies, and in a monogamous. No fevers/chills. No insect bites he's aware of. No pets at home. Lesions non-pruritic and painless. No IVDA Vital Signs Temperature 98.4 F 03/20/20 14:35 Pulse Rate 68 03/20/20 14:35 Respiratory Rate 18 03/20/20 14:35 Blood Pressure 148/86 03/20/20 14:35 O2 Sat by Pulse Oximetry (%) 97 03/20/20 11:51 PE: Gen: NAd, awake, alert, oriented HEENT: NC/aT, EOMI, L inside nare lesion, no mucosal ulcers, no thrush, MMM Neck: No rashes or lesions LUNG: CTA b/l without wheezes or rales. CARD: RRR no murmurs noted ABD: soft, Nt/ND, umbilicus lesion noted below, + BS SKIN: Multidermatome level raised ulcerations without any drainage, TTP, underlying fluctuance, surrounding erythema. Microbiology 03/19/20 12:30 Blood - Peripheral Venous Blood Culture - Preliminary NO GROWTH OBTAINED AFTER 24 HOURS, INCUBATION TO CONTINUE FOR 4 DAYS. 03/19/20 12:40 Blood - Peripheral Venous Blood Culture - Preliminary NO GROWTH OBTAINED AFTER 24 HOURS, INCUBATION TO CONTINUE FOR 4 DAYS. Active Medications Heparin Sodium (Porcine) (Heparin -) 5,000 unit SQ BID SCOOTER Last Admin: 03/20/20 10:54 Dose: 5,000 unit Documented by: Vancomycin HCl 1,500 mg/ (Dextrose) 500 mls @ 250 mls/hr IVPB Q24H [facility]; Protocol Last Admin: 03/20/20 12:52 Dose: 250 mls/hr Documented by: Mupirocin (Bactroban Ointment (For Decolonization) -) 1 applic NS BID [facility] Stop: 03/25/20 09:59 Assessment and Plan: ? MRSA Ulcerations --MRSA positive 03/16 cultures --Decolonization Mupirocin BID for 5 days total --Continue Vancomycin for lesions --Hepatitis B and C panel ordered given recent tattoo with questionable contamination --If unresolving next step would be to have dermatology assess patient Continue DVT ppx DO Karen Watt IM
--- NOTE | 2020-03-20 18:39 | PN ---
Progress Note, Physician History of Present Illness: Pt doing well. Afebrile. Boils on RUE and abd healed, the one below Rt elbow now with no drainage, minimal surrounding erythema. Xray results noted. - Current Medication List Current Medications: Active Medications Heparin Sodium (Porcine) (Heparin -) 5,000 unit SQ BID [facility] Last Admin: 03/20/20 10:54 Dose: 5,000 unit Documented by: Vancomycin HCl 1,500 mg/ (Dextrose) 500 mls @ 250 mls/hr IVPB Q24H [facility]; Protocol Last Admin: 03/20/20 12:52 Dose: 250 mls/hr Documented by: Mupirocin (Bactroban Ointment (For Decolonization) -) 1 applic NS BID [facility] Stop: 03/25/20 09:59 Last Admin: 03/20/20 11:30 Dose: Not Given Documented by: - Objective Vital Signs: Vital Signs Temperature 98.3 F 03/20/20 18:00 Pulse Rate 86 03/20/20 18:00 Respiratory Rate 18 03/20/20 18:00 Blood Pressure 135/85 03/20/20 18:00 O2 Sat by Pulse Oximetry (%) 97 03/20/20 18:00 Constitutional: Yes: No Distress, Calm Cardiovascular: Yes: Regular Rate and Rhythm Respiratory: Yes: Regular Gastrointestinal: Yes: Normal Bowel Sounds, Soft, Abdomen, Obese Edema: No Integumentary: Yes: Tattoos, Other (RUE/ abdominal healed boils, Small right abscess below elbow with no current drainage or significant induration. No elbow edema/erythema/pain, +FROM) Wound/Incision: Yes: Clean/Dry Neurological: Yes: Alert, Oriented Labs: CBC, BMP 03/20/20 06:38 03/20/20 06:38 INR, PTT INR 1.14 (0.83-1.09) H 03/20/20 06:38 Microbiology 03/19/20 12:30 Blood - Peripheral Venous Blood Culture - Preliminary NO GROWTH OBTAINED AFTER 24 HOURS, INCUBATION TO CONTINUE FOR 4 DAYS. 03/19/20 12:40 Blood - Peripheral Venous Blood Culture - Preliminary NO GROWTH OBTAINED AFTER 24 HOURS, INCUBATION TO CONTINUE FOR 4 DAYS. - ....Imaging X-ray: Report Reviewed (Rt elbow normal) Problem List - Problems (1) MRSA cellulitis Code(s): L03.90 - CELLULITIS, UNSPECIFIED; B95.62 - METHICILLIN RESIS STAPH INFCT CAUSING DISEASES CLASSD ELSWHR Assessment/Plan RUE boils +MRSA s/p tattoo -- recent cultures +MRSA - resistant to clindamycin/doxycyline - most boils healed, small abscess under Rt elbow resolving, no current drainage or erythema/edema of arm -- afebrile, no leukocytosis -- may switch to Bactrim DS po BID x 1 week, with monitoring for persistent hyperkalemia -- mupirocin ointment to nares BID x total 5 days -- suggest Chlorhexidine 2% daily bathing x 2 wks -- contact precautions
[2020-03-21 08:05] LABS: BLOOD UREA NITROGEN 17.3 mg/dL (7-18); CALCIUM 9.5 mg/dL (8.5-10.1); POTASSIUM 4.8 mmol/L (3.5-5.1)
[2020-03-21] MEDS: HEPARIN NA (PORCINE) 5,000 UNITS/ML 1ML VIAL SQ SCH (09:58)
[2020-03-21] MEDS ORDERED: SULFAMETHOXAZOLE/TRIMETHOPRIM 800MG/160MG D.S. TABLET PO SCH (10:00)
--- NOTE | 2020-03-21 13:06 | PN ---
Progress Note, Physician History of Present Illness: patient stable multiple boils on the hands and abdomen - Current Medication List Current Medications: Active Medications Heparin Sodium (Porcine) (Heparin -) 5,000 unit SQ BID [facility] Last Admin: 03/21/20 09:58 Dose: 5,000 unit Documented by: Mupirocin (Bactroban Ointment (For Decolonization) -) 1 applic NS BID [facility] Stop: 03/25/20 09:59 Last Admin: 03/20/20 22:52 Dose: Not Given Documented by: Trimethoprim/Sulfamethoxazole (Bactrim Ds -) 1 each PO BID [facility] Last Admin: 03/21/20 09:57 Dose: 1 each Documented by: - Objective Vital Signs: Vital Signs Temperature 98.2 F 03/21/20 10:00 Pulse Rate 91 H 03/21/20 10:00 Respiratory Rate 18 03/21/20 10:00 Blood Pressure 153/90 03/21/20 10:00 O2 Sat by Pulse Oximetry (%) 98 03/21/20 10:00 Constitutional: Yes: No Distress, Calm Eyes: Yes: Conjunctiva Clear, EOM Intact HENT: Yes: Atraumatic, Normocephalic Cardiovascular: Yes: S1, S2 Respiratory: Yes: Regular, CTA Bilaterally Gastrointestinal: Yes: Normal Bowel Sounds, Soft Musculoskeletal: Yes: WNL Extremities: Yes: Other Integumentary: Yes: Other (multiple boils) Neurological: Yes: Alert, Oriented Psychiatric: Yes: Alert, Oriented Labs: CBC, BMP 03/20/20 06:38 03/21/20 06:57 INR, PTT INR 1.14 (0.83-1.09) H 03/20/20 06:38 Assessment/Plan Problem List - Problems (1) MRSA cellulitis Code(s): L03.90 - CELLULITIS, UNSPECIFIED; B95.62 - METHICILLIN RESIS STAPH INFCT CAUSING DISEASES CLASSD ELSWHR Assessment/Plan RUE boils +MRSA s/p tattoo mrsa infection rest as per the team
[2020-03-21 13:30] VITALS: BP 129/80; PULSE 104; TEMP 98.4
--- NOTE | 2020-03-21 13:50 | PN ---
Teaching Attending Note Name of Resident: Tico Kathleen ATTENDING PHYSICIAN STATEMENT I saw and evaluated the patient. I reviewed the resident's note and discussed the case with the resident. I agree with the resident's findings and plan as documented. SUBJECTIVE: Seen and examined at bedside. Patient is alert and oriented x3, hemodynamically stable. Patient switched to Bactrim. Patient is medically cleared for discharge. He will be sent home on Bactrim for 1 week, mupirocin ointment to nares twice daily x5 days, and chlorhexidine daily bathing solution x2 weeks OBJECTIVE: Last Vital Signs Temp Pulse Resp BP Pulse Ox 98.4 F 104 H 18 129/80 98 03/21/20 13:28 03/21/20 13:28 03/21/20 13:28 03/21/20 13:28 03/21/20 10:00 PE: per resident note Labs/Imaging: reviewed ASSESSMENT AND PLAN: 44-year-old male with no past medical history presents with worsening rash in arm and abdomen that did not respond to outpatient antibiotics after receiving a tattoo. Patient was found to have MRSA resistant to clindamycin and doxycycline but sensitive to Bactrim. Patient received vancomycin as an inpatient will be switched to Bactrim as well as a regimen of chlorhexidine washes and mupirocin ointment as per above. Patient is medically cleared for discharge
[2020-03-21] MEDS: MUPIROCIN 2% TOPICAL OINTMENT FOR DECOLONIZATION NS SCH (14:31)
--- NOTE | 2020-03-21 19:51 | DS ---
Physical Exam: SUBJECTIVE: Patient seen and examined at bedside. No acute events overnight. Discharge today on oral antibiotics. OBJECTIVE: Vital Signs Period Temp Pulse Resp BP Sys/Saldana Pulse Ox Last 24 Hr 97.6 F-98.4 F 67-104 16-18 111-153/69-90 95-98 PHYSICAL EXAM GENERAL: NAD HEAD: Normal with no signs of trauma. EYES: EOMI Sclera Clear. NECK: Trachea midline, full range of motion, supple. LUNGS: CTAB HEART: RRR No MRG S1S2 ABDOMEN: Soft, NDNT No HSM EXTREMITIES: Right Elbow small ulcerated lesion non oozing/non-odorous. Multiple lesions on abdomen and back nonoozing/non-odorous. PSYCH: Normal mood, normal affect. SKIN: Warm, dry, normal turgor, no rashes or lesions noted. LABS Laboratory Results - last 24 hr 03/21/20 06:57 Sodium 138 Potassium 4.8 Chloride 105 Carbon Dioxide 27 Anion Gap 6 L BUN 17.3 Creatinine 1.0 Est GFR (CKD-EPI)AfAm 106.36 Est GFR (CKD-EPI)NonAf 91.77 Random Glucose 105 Calcium 9.5 HOSPITAL COURSE: Date of Admission:03/19/20 Patient is a 44-year-old male with no past medical history who presented with a worsening rash on his right arm as well as his abdomen that did not respond to outpatient antibiotics after receiving a tattoo. Patient was placed on IV Vancomycin as previous wound cultures from 03/16 indicated MRSA with susceptibility to Vancomycin. Patient was evaluated by ID who recommended that patient be switched to PO Bactrim DS X 1 week, Mupirocin ointment applied to nares, and chlorhexadine 2% to to wash wounds in. Date of Discharge: 03/21/20 Minutes to complete discharge: 35 Discharge Summary Problems reviewed: Yes Reason For Visit: CELLULITIS DUE TO MRSA Condition: Improved - Instructions Diet, Activity, Other Instructions: You presented to the hospital due to a skin infection. You were found to have a resistant bacteria called MRSA. You were initially treated with intravenous antibiotics. You will be discharged home on oral antibiotics Please take Bactrim DS TWICE per day for 7 more days. You already received a dose this morning. Please take your next dose this evening. You will also be sent home on Muciprocin ointment to be applied to your nares TWICE per day for 5 days. You will also be sent home on Chlorhexadine 2% solution. Please bath in this solution for 2 weeks. Please follow up with your primary care doctor in 1 week. If you don't have a primary doctor, you may establish care with our clinic. A referral has been provided to you . Please return to the hospital if you experience any fevers, chills, nausea/vomiting, worsening of rash, chest pain, shortness of breath, or any other abnormal symptoms. Referrals: [facility] [place] [facility] [place] [Provider Group] Disposition: HOME - Home Medications Comprehensive Discharge Medication List: Ambulatory Orders Chlorhexidine Gluconate [Hibiclens For Decolonization -] 1 applic TP DAILY #1 bottle 03/21/20 Mupirocin Ointment [Bactroban 2% Ointment -] 1 applic TP BID #1 tube 03/21/20 Sulfamethoxazole/Trimethoprim [Bactrim Ds -] 1 tab PO BID #13 tablet 03/21/20 This patient is new to me today: Yes Date on this admission: 03/21/20 Emergency Visit: Yes ED Registration Date: 03/19/20 Care time: The patient presented to the Emergency Department on the above date and was hospitalized for further evaluation of their emergent condition. Critical Care patient: No - Discharge Referral Referred to [facility] No ATTENDING PHYSICIAN STATEMENT I saw and evaluated the patient. I reviewed the resident's note and discussed the case with the resident. I agree with the resident's findings and plan as documented. SUBJECTIVE: OBJECTIVE: ASSESSMENT AND PLAN:
[2020-03-22 21:06] LABS: HEP B CORE AB, TOT Negative (Negative)
== END 2020-03-21 16:55 | disposition home or self-care (01) | DRG 383 ==
LOC: JER 11:50 → JERBED 14:43 → J7W 19:02
PROVIDERS: ADMIT Student in an Organized Health Care Education/Training Program; ATTEND Internal Medicine
DX: L03.113 Cellulitis of right upper limb (principal); B95.62 Methicillin resistant Staphylococcus aureus infection as the cause of diseases classified elsewhere; L02.423 Furuncle of right upper limb; R21 Rash and other nonspecific skin eruption
CPT/HCPCS: 36415; 73070-TC-RT-FY; 80048; 80053; 83735; 84100; 85025; 85027; 85610; 85651; 86140; 86704; 86706; 86707; 86708; 86709; 87040; 87340; 87902; 93005; 93010; 99285-25; J1644; U0003

== ENCOUNTER 2021-01-22 01:56 | Inpatient (IN) | payer OTHER ==
[2021-01-22 02:12] VITALS: BMI 32.1
[2021-01-22] MEDS ORDERED: morphine CARPU-JECT 2 MG/1 ML DISP.SYRIN IVPUSH ONE ×3 (02:43→07:02)
[2021-01-22] MEDS ORDERED: SODIUM CHLORIDE 0.9% 500 ML INFUS.BAG IV ONE (02:44)
[2021-01-22] MEDS ORDERED: ACETAMINOPHEN 1000 MG/100 ML VIAL (NON FORMULARY) IVPB ONE (02:44)
[2021-01-22] MEDS ORDERED: METOCLOPRAMIDE HCL INJECTION 10 MG/2 ML VIAL IVPUSH ONE (02:45)
[2021-01-22] MEDS ORDERED: METOCLOPRAMIDE HCL INJECTION 10 MG/2 ML VIAL ONE (02:49)
[2021-01-22] MEDS ORDERED: ACETAMINOPHEN INJECTION 100 ML IVPB ONE (02:50)
[2021-01-22] MEDS ORDERED: MORPHINE SULFATE 2 MG/ML VIAL ONE ×3 (02:50→07:04)
[2021-01-22 03:51] LABS: BASO % 0.1 % (0-2.0); HEMATOCRIT 44.1 % (35.4-49); HEMOGLOBIN 15.2 GM/dL (11.7-16.9); LYMPH % 16.1 % (8-40); MCH 30.6 pg (25.7-33.7); MCHC 34.5 g/dl (32.0-35.9); MEAN CELL VOLUME 88.6 fl (80-96); MEAN PLT VOLUME 8.1 fl (7.5-11.1); MONO % 4.9 % (3.8-10.2); NEUT % 76.9 % (42.8-82.8); PLATELET COUNT 296 10^3/uL (134-434); RBC 4.98 M/mm3 (4.00-5.60); RDW 15.1 % (11.9-15.9)
[2021-01-22 03:53] LABS: CHLORIDE 107 mmol/L (98-107); SODIUM 138 mmol/L (136-145)
[2021-01-22 03:56] LABS: ALBUMIN 4.2 g/dl (3.4-5.0); ANION GAP 9 MMOL/L (8-16); BLOOD UREA NITROGEN 14.7 mg/dL (7-18); CO2 22 mmol/L (21-32); GLUCOSE,RANDOM 128 mg/dL (74-106)
[2021-01-22 03:59] LABS: CREATININE 1.2 mg/dL (0.55-1.3); SGOT/AST 43 U/L (15-37); SGPT/ALT 74 U/L (13-61)
[2021-01-22 04:00] LABS: BILIRUBIN,TOTAL 0.4 mg/dL (0.2-1)
[2021-01-22 04:01] LABS: TOT PROT 8.4 g/dl (6.4-8.2)
[2021-01-22 04:02] LABS: ALK PHOS 78 U/L (45-117)
[2021-01-22 04:23] LABS: PH,URINE 6.5 (5.0-8.0); URINE APPEARANCE CLEAR; URINE BILIRUBIN NEGATIVE (NEGATIVE); URINE COLOR YELLOW; URINE GLUCOSE (UA) NEGATIVE (NEGATIVE); URINE KETONE TRACE (NEGATIVE); URINE LEUK ESTERASE NEGATIVE (NEGATIVE); URINE NITRITE NEGATIVE (NEGATIVE); URINE PROTEIN TRACE (NEGATIVE)
[2021-01-22] MEDS ORDERED: ONDANSETRON 4 MG/2 ML VIAL IVPUSH ONE ×2 (04:41→15:00)
[2021-01-22] MEDS ORDERED: ONDANSETRON 4 MG/2 ML VIAL ONE ×3 (04:42→15:03)
[2021-01-22 04:52] LABS: CALCIUM 8.9 mg/dL (8.5-10.1)
[2021-01-22] MEDS ORDERED: CEFTRIAXONE 1 GM in DEXTROSE 5%-WATER - 50 ML IVPB ONE (06:32)
[2021-01-22] MEDS ORDERED: CEFTRIAXONE 1 GM/50 ML BAG ONE (06:43)
[2021-01-22] MEDS ORDERED: MORPHINE SULFATE 2 MG/ML VIAL IVPUSH PRN (08:49)
[2021-01-22] MEDS ORDERED: ONDANSETRON 4 MG/2 ML VIAL IVPB PRN ×2 (08:49→15:10)
[2021-01-22 08:55] LABS: INR 1.08 (0.83-1.09); PROTHROMBIN TIME (PATIENT) 13.2 SEC (9.7-13.0)
[2021-01-22 08:57] LABS: ACTIVATED PTT 29.7 SECONDS (25.2-36.5)
[2021-01-22] MEDS ORDERED: ENOXAPARIN NA (PORCINE) 40 MG/0.4 ML DISP.SYRIN SQ ONE (08:59)
[2021-01-22] MEDS ORDERED: LACTATED RINGERS SOLUTION 1,000 ML IV SCH ×2 (09:00→12:15)
[2021-01-22] MEDS ORDERED: ENOXAPARIN NA (PORCINE) 40 MG/0.4 ML DISP.SYRIN SQ SCH (10:00)
[2021-01-22] MEDS ORDERED: ACETAMINOPHEN 325 MG TABLET (FP) PO PRN (12:10)
[2021-01-22] MEDS ORDERED: BUPIVACAINE HCL/PF 0.5% (5MG/ML) 10 ML VIAL ONE ×2 (12:12→14:07)
[2021-01-22] MEDS ORDERED: PROPOFOL 20 ML ONE (12:14)
[2021-01-22] MEDS ORDERED: SUCCINYLCHOLINE CHLORIDE 200 MG/10 ML SYRINGE ONE (12:14)
[2021-01-22] MEDS ORDERED: MIDAZOLAM HCL 2 MG/2 ML SINGLE DOSE VIAL ONE (12:14)
[2021-01-22] MEDS ORDERED: ROCURONIUM BROMIDE 100 MG/10 ML VIAL ONE (12:14)
[2021-01-22] MEDS ORDERED: DESFLURANE GAS 240 ML BOTTLE IH ONE (12:19)
[2021-01-22] MEDS ORDERED: DEXAMETHASONE SOD PHOSPHATE 4 MG/1 ML VIAL ONE (12:54)
[2021-01-22] MEDS ORDERED: BUPIVACAINE HCL/PF 0.5% (5 MG/ML) 30 ML VIAL IJ ONE (14:09)
[2021-01-22] MEDS ORDERED: DEXTROSE 5%-WATER - 50 ML IVPB ONE (16:56)
[2021-01-22] MEDS ORDERED: PIPERACILLIN/TAZOBACTAM 3.375 GM VIAL IVPB ONE (16:56)
[2021-01-22] MEDS: PIPERACILLIN/TAZOB 3.375 GM 3.375 GM in DEXTROSE 5%-WATER - 50 ML IVPB SCH ×2 (17:01→17:45)
[2021-01-22] MEDS: LACTATED RINGERS SOLUTION 1,000 ML IV SCH (17:01)
[2021-01-22] MEDS: ACETAMINOPHEN 325 MG TABLET (FP) PO PRN (20:11)
[2021-01-22] MEDS: morphine SULFATE 4 MG/ML VIAL IVPUSH PRN (21:11)
[2021-01-23] MEDS ORDERED: PIPERACILLIN/TAZOBACTAM 3.375 GM VIAL IVPB ONE ×3 (00:10→16:56)
[2021-01-23] MEDS ORDERED: DEXTROSE 5%-WATER - 50 ML IVPB ONE ×3 (00:10→16:56)
[2021-01-23] MEDS: morphine SULFATE 4 MG/ML VIAL IVPUSH PRN ×6 (00:52→22:51)
[2021-01-23] MEDS: PIPERACILLIN/TAZOB 3.375 GM 3.375 GM in DEXTROSE 5%-WATER - 50 ML IVPB SCH ×3 (00:59→18:42)
[2021-01-23] MEDS: ACETAMINOPHEN 325 MG TABLET (FP) PO PRN (03:33)
[2021-01-23] MEDS: MELATONIN 5 MG TABLETS PO PRN ×2 (03:33→22:51)
[2021-01-23 07:40] LABS: BASO % 0.1 % (0-2.0); EOS % 0.1 % (0-4.5); HEMATOCRIT 38.8 % (35.4-49); HEMOGLOBIN 13.3 GM/dL (11.7-16.9); LYMPH % 9.5 % (8-40); MCH 30.5 pg (25.7-33.7); MCHC 34.4 g/dl (32.0-35.9); MEAN CELL VOLUME 88.6 fl (80-96); MEAN PLT VOLUME 8.3 fl (7.5-11.1); MONO % 8.7 % (3.8-10.2); NEUT % 81.6 % (42.8-82.8); PLATELET COUNT 237 10^3/uL (134-434); RBC 4.38 M/mm3 (4.00-5.60); RDW 14.8 % (11.9-15.9)
[2021-01-23 07:59] LABS: CALCIUM 8.2 mg/dL (8.5-10.1)
[2021-01-23 08:02] LABS: CREATININE 1.3 mg/dL (0.55-1.3)
[2021-01-23] MEDS: ENOXAPARIN NA (PORCINE) 40 MG/0.4 ML DISP.SYRIN SQ SCH (09:47)
[2021-01-23] MEDS ORDERED: ENOXAPARIN NA (PORCINE) 40 MG/0.4 ML DISP.SYRIN SQ SCH (10:00)
[2021-01-24] MEDS ORDERED: PIPERACILLIN/TAZOBACTAM 3.375 GM VIAL IVPB ONE ×3 (01:17→16:52)
[2021-01-24] MEDS ORDERED: DEXTROSE 5%-WATER - 50 ML IVPB ONE ×3 (01:17→16:52)
[2021-01-24] MEDS: PIPERACILLIN/TAZOB 3.375 GM 3.375 GM in DEXTROSE 5%-WATER - 50 ML IVPB SCH ×3 (01:30→18:06)
[2021-01-24] MEDS: morphine SULFATE 4 MG/ML VIAL IVPUSH PRN ×2 (05:18→10:16)
[2021-01-24 07:13] LABS: BASO % 0.2 % (0-2.0); EOS % 1.9 % (0-4.5); HEMATOCRIT 37.6 % (35.4-49); HEMOGLOBIN 13.1 GM/dL (11.7-16.9); LYMPH % 17.7 % (8-40); MCH 30.8 pg (25.7-33.7); MCHC 34.8 g/dl (32.0-35.9); MEAN CELL VOLUME 88.5 fl (80-96); MEAN PLT VOLUME 8.1 fl (7.5-11.1); NEUT % 70.2 % (42.8-82.8); PLATELET COUNT 236 10^3/uL (134-434); RBC 4.25 M/mm3 (4.00-5.60); RDW 14.9 % (11.9-15.9); WHITE BLOOD COUNT 10.1 K/mm3 (4.0-10.0)
[2021-01-24 07:43] LABS: CALCIUM 8.2 mg/dL (8.5-10.1); MAGNESIUM 2.1 mg/dL (1.8-2.4)
[2021-01-24 07:47] LABS: BILIRUBIN,TOTAL 0.5 mg/dL (0.2-1); CREATININE 1.3 mg/dL (0.55-1.3); PHOSPHOROUS 2.8 mg/dL (2.5-4.9)
[2021-01-24 07:48] LABS: TOT PROT 6.4 g/dl (6.4-8.2)
[2021-01-24] MEDS: LACTATED RINGERS SOLUTION 1,000 ML IV SCH ×2 (10:13→18:04)
[2021-01-24] MEDS: ENOXAPARIN NA (PORCINE) 40 MG/0.4 ML DISP.SYRIN SQ SCH (10:14)
[2021-01-24] MEDS: ACETAMINOPHEN 1000 MG/100 ML VIAL (NON FORMULARY) IVPB PRN (23:03)
[2021-01-25] MEDS ORDERED: DEXTROSE 5%-WATER - 50 ML IVPB ONE ×2 (01:28→09:05)
[2021-01-25] MEDS ORDERED: PIPERACILLIN/TAZOBACTAM 3.375 GM VIAL IVPB ONE ×2 (01:28→09:04)
[2021-01-25] MEDS: PIPERACILLIN/TAZOB 3.375 GM 3.375 GM in DEXTROSE 5%-WATER - 50 ML IVPB SCH ×2 (01:39→09:12)
[2021-01-25 08:39] LABS: BASO % 0.5 % (0-2.0); EOS % 3.1 % (0-4.5); HEMATOCRIT 41.5 % (35.4-49); HEMOGLOBIN 14.4 GM/dL (11.7-16.9); LYMPH % 30.3 % (8-40); MCH 30.5 pg (25.7-33.7); MCHC 34.6 g/dl (32.0-35.9); MEAN CELL VOLUME 88.2 fl (80-96); MEAN PLT VOLUME 7.8 fl (7.5-11.1); MONO % 9.4 % (3.8-10.2); NEUT % 56.7 % (42.8-82.8); PLATELET COUNT 264 10^3/uL (134-434); RBC 4.71 M/mm3 (4.00-5.60); RDW 14.5 % (11.9-15.9); WHITE BLOOD COUNT 8.2 K/mm3 (4.0-10.0)
[2021-01-25 09:08] LABS: CALCIUM 8.8 mg/dL (8.5-10.1)
[2021-01-25 09:09] LABS: ALBUMIN 3.2 g/dl (3.4-5.0); BLOOD UREA NITROGEN 11.9 mg/dL (7-18); MAGNESIUM 2.3 mg/dL (1.8-2.4)
[2021-01-25 09:12] LABS: CREATININE 1.1 mg/dL (0.55-1.3)
[2021-01-25] MEDS: ENOXAPARIN NA (PORCINE) 40 MG/0.4 ML DISP.SYRIN SQ SCH (09:12)
[2021-01-25 09:13] LABS: BILIRUBIN,TOTAL 0.5 mg/dL (0.2-1); TOT PROT 6.9 g/dl (6.4-8.2)
[2021-01-25] MEDS: ACETAMINOPHEN 1000 MG/100 ML VIAL (NON FORMULARY) IVPB PRN (16:34)
[2021-01-25] MEDS: LACTATED RINGERS SOLUTION 1,000 ML IV SCH (17:13)
[2021-01-26] MEDS ORDERED: ACETAMINOPHEN 325 MG TABLET (FP) PO PRN (01:21)
[2021-01-26 08:35] LABS: BASO % 0.4 % (0-2.0); EOS % 3.5 % (0-4.5); HEMOGLOBIN 14.2 GM/dL (11.7-16.9); LYMPH % 34.3 % (8-40); MCH 31.1 pg (25.7-33.7); MCHC 35.5 g/dl (32.0-35.9); MEAN CELL VOLUME 87.6 fl (80-96); MEAN PLT VOLUME 8.2 fl (7.5-11.1); MONO % 10.9 % (3.8-10.2); NEUT % 50.9 % (42.8-82.8); PLATELET COUNT 300 10^3/uL (134-434); RBC 4.56 M/mm3 (4.00-5.60); RDW 14.4 % (11.9-15.9); WHITE BLOOD COUNT 8.5 K/mm3 (4.0-10.0)
[2021-01-26 09:02] LABS: CALCIUM 8.3 mg/dL (8.5-10.1)
[2021-01-26 09:04] LABS: BLOOD UREA NITROGEN 11.9 mg/dL (7-18)
[2021-01-26 09:07] LABS: BILIRUBIN,TOTAL 0.5 mg/dL (0.2-1); TOT PROT 6.7 g/dl (6.4-8.2)
[2021-01-26] MEDS: ENOXAPARIN NA (PORCINE) 40 MG/0.4 ML DISP.SYRIN SQ SCH (10:21)
[2021-01-26 12:08] VITALS: BP 137/82; PULSE 76; TEMP 98.6
== END 2021-01-26 12:49 | disposition home or self-care (01) | DRG 225 ==
LOC: JER 01:56 → JERBED 05:46 → J7W 16:40
PROVIDERS: ADMIT Internal Medicine
PROC: 0DBJ4ZZ Excision of Appendix, Percutaneous Endoscopic Approach (ICD-10-PCS; principal; 2021-01-22 11:00)
DX: K35.33 Acute appendicitis with perforation, localized peritonitis, and gangrene, with abscess (principal); E66.9 Obesity, unspecified; Z68.32 Body mass index [BMI] 32.0-32.9, adult; E78.5 Hyperlipidemia, unspecified
CPT/HCPCS: 36415; 71045-TC-FY; 74177-TC; 80048; 80053; 80061; 81003; 82550; 82553; 83036; 83721; 83735; 84100; 84443; 84484; 85025; 85610; 85730; 86850; 86900; 86901; 87070; 87075; 87076; 87081; 87186; 87205; 88304-TC; 93005; 93010; 94760; 99285-25; C9803; J0131; Q9967; U0003; U0005

== ENCOUNTER 2021-10-25 11:07 | Emergency (ER) | payer OTHER ==
[2021-10-25 11:28] VITALS: BP 145/87; PULSE 83; TEMP 98.2; BMI 36.6
[2021-10-25 11:50] LABS: URINE APPEARANCE CLEAR; URINE BILIRUBIN NEGATIVE (NEGATIVE); URINE COLOR YELLOW; URINE GLUCOSE (UA) NEGATIVE (NEGATIVE); URINE KETONE NEGATIVE (NEGATIVE); URINE LEUK ESTERASE NEGATIVE (NEGATIVE); URINE NITRITE NEGATIVE (NEGATIVE); URINE PROTEIN NEGATIVE (NEGATIVE); URINE UROBILINOGEN 0.2 mg/dL (0.2-1.0)
== END 2021-10-25 11:54 | disposition home or self-care (01) ==
LOC: JERFT 11:07
DX: Z20.2 Contact with and (suspected) exposure to infections with a predominantly sexual mode of transmission (principal)
CPT/HCPCS: 36415; 81003; 87086; 87491; 87591; 99284-25

== ENCOUNTER 2022-05-25 15:15 | Emergency (ER) | payer OTHER ==
[2022-05-25 15:31] VITALS: BP 127/85; PULSE 76; RESP 19; TEMP 98.1
[2022-05-25] MEDS ORDERED: MECLIZINE HCL 25 MG TABLET (FP) PO ONE (16:18)
[2022-05-25] MEDS ORDERED: ACETAMINOPHEN 500 MG TABLET (FP) PO ONE (16:18)
[2022-05-25] MEDS ORDERED: ACETAMINOPHEN 500 MG TABLET (FP) ONE (16:30)
[2022-05-25] MEDS ORDERED: MECLIZINE HCL 25 MG TABLET (FP) ONE (16:31)
== END 2022-05-25 18:45 | disposition home or self-care (01) ==
LOC: JERFT 15:15
DX: R42 Dizziness and giddiness (principal); M54.50 Low back pain, unspecified; M25.511 Pain in right shoulder; M25.512 Pain in left shoulder; V49.40XA Driver injured in collision with unspecified motor vehicles in traffic accident, initial encounter
CPT/HCPCS: 70450-TC; 99284-25

== ENCOUNTER 2022-06-20 12:39 | Emergency (ER) | payer OTHER ==
[2022-06-20 14:05] VITALS: BP 129/82; PULSE 83; RESP 18; TEMP 99; BMI 29.0
== END 2022-06-20 14:40 | disposition home or self-care (01) ==
LOC: JERFT 12:39
DX: Z20.2 Contact with and (suspected) exposure to infections with a predominantly sexual mode of transmission (principal)
CPT/HCPCS: 36415; 87086; 87491; 87591; 99284-25